=== PATIENT | male | born 1970 | race Two or more races ===

== ENCOUNTER 2017-10-19 22:55 | Emergency (ER) | payer BC ==
[2017-10-19 23:35] LABS: ADD MAN DIFF? NO
[2017-10-19] MEDS: ONDANSETRON PF 4 MG/2 ML VIAL. IV (23:36)
[2017-10-19 23:37] LABS: BASO # 0.1 x10^3/uL (0.0-0.2); BASO % 1 % (0-3); EOS # 0.3 x10^3/uL (0.0-0.7); EOS % 3 % (0-3); HEMATOCRIT 43.2 % (39.0-53.0); LYMPH % 23 % (24-48); MEAN CORPUSCULAR HEMOGLOBIN 31 pg (25-35); MEAN CORPUSCULAR HGB CONC 35 g/dL (31-37); MEAN CORPUSCULAR VOLUME 88 fL (79-100); MONO # 0.6 x10^3/uL (0.0-1.1); MONO % 7 % (0-9); NEUT # 5.8 x10^3uL (1.8-7.7); NEUT % 66 % (31-73); PLATELET COUNT 306 x10^3/uL (140-400); RED BLOOD COUNT 4.93 x10^6/uL (4.30-5.70); RED CELL DISTRIBUTION WIDTH 14.1 % (11.5-14.5); WHITE BLOOD COUNT 8.8 x10^3/uL (4.0-11.0)
[2017-10-19] MEDS: IV NORMAL SALINE 1000ML BAG 1,000 ML IV (23:37)
[2017-10-19 23:49] LABS: ANION GAP 12 (6-14); BLOOD UREA NITROGEN 14 mg/dL (8-26); BUN/CREATININE RATIO 11 (6-20); CALCIUM 9.3 mg/dL (8.5-10.1); CARBON DIOXIDE 24 mmol/L (21-32); CHLORIDE 100 mmol/L (98-107); CREATININE 1.3 mg/dL (0.7-1.3); GFR 59.4; GLUCOSE 123 mg/dL (70-99); POTASSIUM 3.5 mmol/L (3.5-5.1); SODIUM 136 mmol/L (136-145)
[2017-10-19 23:55] LABS: ALBUMIN 4.1 g/dL (3.4-5.0); ALBUMIN/GLOBULIN RATIO 1.2 (1.0-1.7); ALK PHOS 68 U/L (46-116); ALT (SGPT) 54 U/L (16-63); AST (SGOT) 23 U/L (15-37); CREATINE KINASE 242 U/L (39-308); TOTAL BILIRUBIN 0.6 mg/dL (0.2-1.0); TOTAL PROTEIN 7.6 g/dL (6.4-8.2)
[2017-10-19 23:57] LABS: TROPONINI < 0.017 ng/mL (0.000-0.055)
[2017-10-20 00:02] LABS: THYROID STIM HORMONE (TSH) 1.674 uIU/mL (0.358-3.74)
[2017-10-20 00:02] LABS: CKMB INDEX 1.7 % (0-4); CKMB MASS 4.1 ng/mL (0.0-3.6); CREATINE KINASE 238 U/L (39-308)
[2017-10-20 01:13] LABS: BILIRUBIN,URINE NEGATIVE (NEG); CLARITY,URINE CLEAR; COLOR,URINE YELLOW; GLUCOSE,URINE NEGATIVE (NEG); NITRITE,URINE NEGATIVE (NEG); PROTEIN,URINE NEGATIVE (NEG-TRACE); UROBILINOGEN,URINE 0.2 mg/dL (0.2 mg/dL)
[2017-10-20 01:21] LABS: BARBITURATES NEG (NEG); BENZODIAZEPINES NEG (NEG); CANNABINOIDS POS (NEG); COCAINE NEG (NEG); METHADONE NEG (NEG); OPIATES NEG (NEG); PHENCYCLIDINE NEG (NEG)
[2017-10-20 01:29] LABS: AMPHETAMINE/METHAMPHETAMINE NEG (NEG); ETHANOL, URINE NEG (NEG)
[2017-10-20 01:36] LABS: BACTERIA,URINE FEW /HPF (0-FEW); SQUAMOUS EPITHELIAL CELL,UR FEW /LPF
[2017-10-20 01:37] LABS: HYALINE CASTS, URINE MANY /HPF
== END 2017-10-20 01:30 | disposition home or self-care (01) ==
LOC: ER 22:55
DX: E86.0 Dehydration (principal); E03.9 Hypothyroidism, unspecified; F10.10 Alcohol abuse, uncomplicated
CPT/HCPCS: 36415; 70450; 71045; 80053; 80307; 81001; 82550; 82553; 84443; 84484; 85025; 93005; 96361; 96374; 99285-25; J2405; J7030